=== PATIENT | male | born 1990 | race African-American/Black ===

== ENCOUNTER 2018-10-06 00:16 | Emergency (ER) | payer SELFPAY ==
[~2018-10-06] VITALS: Ht 182.9 cm; Wt 83.9 kg
[2018-10-06 00:25] VITALS: BP 137/72
--- NOTE | 2018-10-06 02:33 | PHYS DOC ---
Past Medical History Past Medical History: No Pertinent History Past Surgical History: Other Additional Past Surgical Histo: Jaw abscess I&D Alcohol Use: None Drug Use: Marijuana Social History Narrative: last THC use 10/05/18 Adult General Chief Complaint Chief Complaint: THUMB HPI HPI Patient is a 28 year old male who is presenting with the thumb snap when he was moving a piece of furniture he says he felt something fell out of place. Pain is moderate located at the base of the thumb joint. No wrist pain Review of Systems Review of Systems All other systems were reviewed and found to be within normal limits, except as documented in this note. Allergies Allergies Allergies Coded Allergies Type Severity Reaction Last Updated Verified No Known Drug Allergies 10/06/18 No Physical Exam Physical Exam Constitutional: Well developed, well nourished, no acute distress, non-toxic appearance. [] HENT: Normocephalic, atraumatic, bilateral external ears normal, oropharynx moist, no oral exudates, nose normal. [] Eyes: PERRLA, EOMI, conjunctiva normal, no discharge. [] Neck: Normal range of motion, no tenderness, supple, no stridor. [] Pulmonary: Normal respiratory effort no increased work of breathing no obvious chest wall trauma Back: No tenderness, no CVA tenderness. [] Extremities: There is tenderness to palpation at the base of the thumb at the MTP joint there is mild swelling distal sensation is intact there is no tenderness at snuffbox Neurologic: Alert and oriented X 3, normal motor function, normal sensory function, no focal deficits noted. [] Psychologic: Affect normal, judgement normal, mood normal. [] Current Patient Data Vital Signs Vital Signs Date Time Temp Pulse Resp B/P (MAP) Pulse Ox O2 Delivery O2 Flow Rate FiO2 10/06/18 00:25 97.9 108 18 137/72 (93) 95 Room Air 97.9 EKG EKG [] Radiology/Procedures Radiology/Procedures [] Course & Med Decision Making Course & Med Decision Making Pertinent Labs and Imaging studies reviewed. (See chart for details) []X-ray interpreted by me in the absence of radiology shows no obvious acute fracture or dislocation I did tell the patient final read is pending we did place the patient in a wrist splint and he'll be discharged in stable condition at this time. Dragon Disclaimer Dragon Disclaimer This electronic medical record was generated, in whole or in part, using a voice recognition dictation system. Departure Departure Impression: Primary Impression: Thumb sprain Disposition: HOME, SELF-CARE Condition: STABLE Referrals: NO PCP (PCP) Patient Instructions: Thumb SprSURJIT Pichardo MD Oct 06, 2018 02:33
--- NOTE | 2018-10-06 08:16 | RAD ---
Three-view study left hand Clinical indications: Trauma and pain. FINDINGS: No acute fracture or dislocation or lytic process is seen. No significant arthritic change is evident. No radiopaque foreign body is seen. IMPRESSION: No acute osseous abnormality. Electronically signed by: Zoltan Alexander MD (10/06/2018 8:13 AM) [facility]
== END 2018-10-06 01:40 | disposition home or self-care (01) ==
LOC: ER 00:16
DX: S63.682A Other sprain of left thumb, initial encounter (principal); W20.8XXA Other cause of strike by thrown, projected or falling object, initial encounter; Y93.89 Activity, other specified; Y92.89 Other specified places as the place of occurrence of the external cause; Y99.8 Other external cause status
CPT/HCPCS: 29125; 73130; 99283